=== PATIENT | male | born 1940 | race African-American/Black ===

== ENCOUNTER 2020-01-28 11:26 | Inpatient (IN) ==
[2020-01-28] MEDS ORDERED: ONDANSETRON 4 MG/2 ML VIAL IV PRN (14:03)
[2020-01-28] MEDS ORDERED: ACETAMINOPHEN 325 MG TABLET PO PRN (14:03)
[2020-01-28] MEDS ORDERED: DEXTROSE 10% 1,000 ML IV SCH (14:30)
[2020-01-28] MEDS ORDERED: ENOXAPARIN 40 MG/0.4 ML SYRINGE SUBCUT SCH (15:00)
[2020-01-28 15:38] LABS: ABG Base Excess -6.9 MMOL/L (-2.5-2.5); ABG HCO3 18.9 MMOL/L (20-26); ABG Oxygen Saturation 99.8 % (95-100); ABG PCO2 23.8 MM HG (35-48); ABG TCO2 13.8 MMOL/L (23-27)
[2020-01-28] MEDS: FAMOTIDINE 20 MG/2 ML VIAL IV SCH (15:44)
[2020-01-28 17:07] LABS: Basophils % 0.1 % (0.0-0.8); Hematocrit 39.2 VOL% (42.0-52.0); Hemoglobin 12.6 GM/DL (14.0-18.0); Immature Granulocytes % 0.4 %; Immature Granulocytes Absolute 0.03 #; Lymphocytes # 0.7 10*3/uL (1.4-4.0); Lymphocytes % 9.3 % (21.2-54.2); Mean Corpuscular HGB Conc 32.1 GM/DL (32-36); Mean Corpuscular Volume 79.4 FL (87-102); Mean Platelet Volume 11.5 FL (9.6-12.0); Monocytes % 11.2 % (1.7-12.7); NRBC # 0.05 10*3/uL; Platelet Count 238 T/CUMM (130-400); Red Blood Count 4.94 MC/CUMM (3.8-5.5); Red Cell Distribution Width 20.1 % (9.3-17.3); White Blood Count 7.4 T/CUMM (4-12)
[2020-01-28 17:24] LABS: INR 1.7; PT Patient Result 18.1 SECS (9.8-11.9)
[2020-01-28 17:25] LABS: Bilirubin,Total 1.6 MG/DL (0.2-1.0); Osmolality,Calculated 301.1 MOS/KG (273-304); Total Protein 7.1 G/DL (6.4-8.3)
[2020-01-28] MEDS ORDERED: HYDROCORTISONE 100 MG VIAL IV ONE (21:21)
[2020-01-28] MEDS ORDERED: SODIUM CHLORIDE 0.9% 1,000 ML IV ONE (22:20)
[2020-01-28] MEDS ORDERED: DOPamine 800 MG/250 ML PREMIX IV PRN (22:24)
[2020-01-28 23:12] LABS: Albumin 2.7 G/DL (3.4-5.0); Bilirubin,Total 1.1 MG/DL (0.2-1.0); Calcium 9.9 MG/DL (8.5-10.1); Osmolality,Calculated 299.2 MOS/KG (273-304); Total Protein 6.7 G/DL (6.4-8.3)
[2020-01-29 00:48] LABS: Apearance,Urine CLOUDY (Clear); Bacteria,Urine Many /HPF (Few); Bilirubin,Urine Negative (Negative); Blood, Urine Large mg/dL (Negative); Glucose,Urine (UA) Negative (Negative); Ketones,Urine Negative (Negative); Mucus,Urine Few /LPF (Occasional); Nitrite,Urine Negative (Negative); Protein,Urine 30 MG/DL; RBC,Urine 711 /HPF (0-4); Urine Color Amber (Yellow); Urine Urobilinogen < 2.0 EU/DL (0.2-1.0); WBC,Urine 657 /HPF (0-6)
[2020-01-29] MEDS: FAMOTIDINE 20 MG/2 ML VIAL IV SCH ×2 (03:08→16:30)
[2020-01-29 04:31] LABS: Basophils % 0.1 % (0.0-0.8); Hematocrit 37.2 VOL% (42.0-52.0); Immature Granulocytes % 0.4 %; Immature Granulocytes Absolute 0.04 #; Lymphocytes # 0.5 10*3/uL (1.4-4.0); Lymphocytes % 5.1 % (21.2-54.2); Mean Corpuscular HGB Conc 32.3 GM/DL (32-36); Mean Corpuscular Volume 79.1 FL (87-102); NRBC # 0.06 10*3/uL; Neutrophils % 88.4 % (38.7-73.9); Platelet Count 242 T/CUMM (130-400); Red Cell Distribution Width 20.1 % (9.3-17.3); White Blood Count 10.2 T/CUMM (4-12)
[2020-01-29 04:40] LABS: Allen Test Positive; Pt O2 Delivery Device Ventilator
[2020-01-29 04:41] LABS: ABG Base Excess -3.8 MMOL/L (-2.5-2.5); ABG HCO3 17.4 MMOL/L (20-26); ABG Oxygen Saturation 99.5 % (95-100); ABG PCO2 22.5 MM HG (35-48); ABG PH 7.506 (7.35-7.45); ABG PO2 300.7 MM HG (80-95); ABG TCO2 18.1 MMOL/L (23-27)
[2020-01-29 05:10] LABS: Albumin 2.5 G/DL (3.4-5.0); Albumin 2.8 G/DL (3.4-5.0); Bilirubin,Direct 0.47 MG/DL (0.0-0.20); Bilirubin,Indirect 0.4 MG/DL (0.0-1.0); Bilirubin,Total 0.9 MG/DL (0.2-1.0); Calcium 9.7 MG/DL (8.5-10.1); Total Protein 6.6 G/DL (6.4-8.3); Total Protein 6.7 G/DL (6.4-8.3)
[2020-01-29] MEDS: HYDROCORTISONE 100 MG VIAL IV SCH ×3 (06:41→22:05)
[2020-01-29] MEDS: DEXTROSE 5% NACL 0.45% 1,000 ML IV SCH (10:50)
[2020-01-29] MEDS: cefTRIAXone 1,000 MG in SYRINGE 1 EACH IV SCH (13:15)
[2020-01-29] MEDS: ENOXAPARIN 30 MG/0.3 ML SYRINGE SUBCUT SCH (16:30)
[2020-01-30 04:20] LABS: Hematocrit 37.4 VOL% (42.0-52.0); Hemoglobin 11.7 GM/DL (14.0-18.0); Immature Granulocytes % 0.7 %; Immature Granulocytes Absolute 0.07 #; Lymphocytes # 0.5 10*3/uL (1.4-4.0); Lymphocytes % 5.3 % (21.2-54.2); Mean Corpuscular HGB Conc 31.3 GM/DL (32-36); Mean Corpuscular Volume 79.7 FL (87-102); Mean Platelet Volume 11.3 FL (9.6-12.0); Monocytes % 6.8 % (1.7-12.7); NRBC # 0.03 10*3/uL; Neutrophils % 87.2 % (38.7-73.9); Platelet Count 235 T/CUMM (130-400); Red Blood Count 4.69 MC/CUMM (3.8-5.5); Red Cell Distribution Width 20.4 % (9.3-17.3)
[2020-01-30 04:25] LABS: ABG Base Excess -3.5 MMOL/L (-2.5-2.5); ABG HCO3 21.6 MMOL/L (20-26); ABG Oxygen Saturation 99.8 % (95-100); ABG PH 7.456 (7.35-7.45); ABG TCO2 16.6 MMOL/L (23-27); Allen Test Positive; Pt O2 Delivery Device Ventilator
[2020-01-30 04:32] LABS: Calcium 9.5 MG/DL (8.5-10.1); Osmolality,Calculated 301.8 MOS/KG (273-304)
[2020-01-30] MEDS: DEXTROSE 5% NACL 0.45% 1,000 ML IV SCH (08:06)
[2020-01-30] MEDS: cefTRIAXone 1,000 MG in SYRINGE 1 EACH IV SCH (14:08)
[2020-01-30] MEDS: HYDROCORTISONE 100 MG VIAL IV SCH ×3 (14:08→21:28)
[2020-01-30] MEDS: ENOXAPARIN 30 MG/0.3 ML SYRINGE SUBCUT SCH (15:43)
[2020-01-30] MEDS: FAMOTIDINE 20 MG/2 ML VIAL IV SCH (15:44)
[2020-01-31] MEDS: DEXTROSE 5% NACL 0.45% 1,000 ML IV SCH ×2 (02:32→22:36)
[2020-01-31 07:04] LABS: Calcium 9.3 MG/DL (8.5-10.1); Osmolality,Calculated 305.4 MOS/KG (273-304)
[2020-01-31] MEDS: HYDROCORTISONE 100 MG VIAL IV SCH ×2 (10:14→22:34)
[2020-01-31] MEDS: cefTRIAXone 1,000 MG in SYRINGE 1 EACH IV SCH (10:14)
[2020-01-31] MEDS: FAMOTIDINE 20 MG/2 ML VIAL IV SCH (16:37)
[2020-01-31] MEDS: ENOXAPARIN 30 MG/0.3 ML SYRINGE SUBCUT SCH (16:37)
[2020-02-01 05:07] LABS: Hematocrit 35.8 VOL% (42.0-52.0); Hemoglobin 11.4 GM/DL (14.0-18.0); Immature Granulocytes % 0.5 %; Immature Granulocytes Absolute 0.06 #; Lymphocytes # 0.6 10*3/uL (1.4-4.0); Lymphocytes % 5.6 % (21.2-54.2); Mean Corpuscular HGB Conc 31.8 GM/DL (32-36); Mean Corpuscular Volume 79.4 FL (87-102); Mean Platelet Volume 11.2 FL (9.6-12.0); Monocytes % 6.5 % (1.7-12.7); NRBC # 0.03 10*3/uL; Neutrophils % 87.4 % (38.7-73.9); Platelet Count 182 T/CUMM (130-400); Red Blood Count 4.51 MC/CUMM (3.8-5.5); Red Cell Distribution Width 20.9 % (9.3-17.3); White Blood Count 11.3 T/CUMM (4-12)
[2020-02-01 05:58] LABS: Calcium 9.5 MG/DL (8.5-10.1); Osmolality,Calculated 301.7 MOS/KG (273-304)
[2020-02-01] MEDS: HYDROCORTISONE 100 MG VIAL IV SCH ×2 (10:18→22:19)
[2020-02-01] MEDS: cefTRIAXone 1,000 MG in SYRINGE 1 EACH IV SCH (10:20)
[2020-02-01] MEDS: FAMOTIDINE 20 MG/2 ML VIAL IV SCH (15:25)
[2020-02-01] MEDS: ENOXAPARIN 30 MG/0.3 ML SYRINGE SUBCUT SCH (15:25)
[2020-02-01] MEDS ORDERED: DEXTROSE 50% 25 GM/50 ML VIAL IV PRN (15:45)
[2020-02-01] MEDS ORDERED: GLUCAGON 1 MG VIAL IM PRN (15:45)
[2020-02-01] MEDS: INSULIN LISPRO 100 UNIT/ML SUBCUT SCH ×2 (16:12→21:00)
[2020-02-01] MEDS: DEXTROSE 5% NACL 0.45% 1,000 ML IV SCH (19:30)
[2020-02-02] MEDS: INSULIN LISPRO 100 UNIT/ML SUBCUT SCH ×4 (01:58→20:14)
[2020-02-02] MEDS: ALBUTEROL/IPRATROPIUM 3 ML NEB RESP TX SCH ×5 (02:35→19:26)
[2020-02-02 02:47] LABS: Basophils % 0.1 % (0.0-0.8); Eosinophils % 0.3 % (0.00-10.9); Hematocrit 37.6 VOL% (42.0-52.0); Hemoglobin 11.9 GM/DL (14.0-18.0); Immature Granulocytes % 0.6 %; Immature Granulocytes Absolute 0.06 #; Lymphocytes # 0.7 10*3/uL (1.4-4.0); Lymphocytes % 6.1 % (21.2-54.2); Mean Corpuscular HGB Conc 31.6 GM/DL (32-36); Mean Platelet Volume 10.6 FL (9.6-12.0); NRBC # 0.02 10*3/uL; Neutrophils % 87.9 % (38.7-73.9); Platelet Count 175 T/CUMM (130-400); Red Blood Count 4.64 MC/CUMM (3.8-5.5); Red Cell Distribution Width 20.6 % (9.3-17.3); White Blood Count 10.8 T/CUMM (4-12)
[2020-02-02 03:02] LABS: Calcium 9.5 MG/DL (8.5-10.1); Osmolality,Calculated 300.5 MOS/KG (273-304)
[2020-02-02 03:07] LABS: Troponin I 0.379 NG/ML (0.00-0.045)
[2020-02-02] MEDS: TERAZOSIN 2 MG CAPSULE PO SCH (09:22)
[2020-02-02] MEDS: ASPIRIN EC 81 MG TABLET PO SCH ×2 (09:22→09:29)
[2020-02-02] MEDS: METOPROLOL SUCCINATE XL 100 MG TABLET PO SCH (09:22)
[2020-02-02] MEDS: HYDROCORTISONE 100 MG VIAL IV SCH ×2 (09:23→21:56)
[2020-02-02] MEDS: cefTRIAXone 1,000 MG in SYRINGE 1 EACH IV SCH (12:00)
[2020-02-02] MEDS: ENOXAPARIN 30 MG/0.3 ML SYRINGE SUBCUT SCH (15:58)
[2020-02-02] MEDS: FAMOTIDINE 20 MG/2 ML VIAL IV SCH (15:59)
[2020-02-02] MEDS: DEXTROSE 5% NACL 0.45% 1,000 ML IV SCH (16:59)
[2020-02-03] MEDS: ALBUTEROL/IPRATROPIUM 3 ML NEB RESP TX SCH ×7 (00:07→20:11)
[2020-02-03] MEDS: INSULIN LISPRO 100 UNIT/ML SUBCUT SCH ×4 (01:50→17:19)
[2020-02-03 05:46] LABS: Eosinophils % 0.1 % (0.00-10.9); Hematocrit 37.6 VOL% (42.0-52.0); Hemoglobin 11.8 GM/DL (14.0-18.0); Immature Granulocytes % 0.6 %; Immature Granulocytes Absolute 0.06 #; Lymphocytes # 0.4 10*3/uL (1.4-4.0); Lymphocytes % 3.9 % (21.2-54.2); Mean Corpuscular HGB Conc 31.4 GM/DL (32-36); Mean Corpuscular Volume 80.7 FL (87-102); Monocytes % 2.5 % (1.7-12.7); Neutrophils % 92.9 % (38.7-73.9); Platelet Count 159 T/CUMM (130-400); Red Blood Count 4.66 MC/CUMM (3.8-5.5); Red Cell Distribution Width 21.1 % (9.3-17.3); White Blood Count 10.5 T/CUMM (4-12)
[2020-02-03 06:11] LABS: Albumin 2.9 G/DL (3.4-5.0); Bilirubin,Total 0.8 MG/DL (0.2-1.0); Calcium 9.6 MG/DL (8.5-10.1); Osmolality,Calculated 300.4 MOS/KG (273-304)
[2020-02-03 06:20] LABS: Band Neutrophils 1 % (0-10); Hypochromasia 2+; Lymphocytes 4 % (20-55); Segmented Neutrophils 93 % (50-85); Total Cells Counted 100
[2020-02-03 06:21] LABS: Microcytosis 1+; Target Cells Slight
[2020-02-03 06:22] LABS: Platelet Estimate Adequate
[2020-02-03] MEDS: TERAZOSIN 2 MG CAPSULE PO SCH (09:38)
[2020-02-03] MEDS: HYDROCORTISONE 100 MG VIAL IV SCH ×2 (09:38→22:23)
[2020-02-03] MEDS: ASPIRIN EC 81 MG TABLET PO SCH (09:38)
[2020-02-03] MEDS: METOPROLOL SUCCINATE XL 100 MG TABLET PO SCH (09:38)
[2020-02-03] MEDS: DEXTROSE 5% NACL 0.45% 1,000 ML IV SCH (12:30)
[2020-02-03] MEDS: cefTRIAXone 1,000 MG in SYRINGE 1 EACH IV SCH (13:00)
[2020-02-03] MEDS: ENOXAPARIN 30 MG/0.3 ML SYRINGE SUBCUT SCH (15:18)
[2020-02-03] MEDS: FAMOTIDINE 20 MG/2 ML VIAL IV SCH (15:20)
[2020-02-04] MEDS: INSULIN LISPRO 100 UNIT/ML SUBCUT SCH ×4 (01:24→17:38)
[2020-02-04] MEDS: ALBUTEROL/IPRATROPIUM 3 ML NEB RESP TX SCH ×6 (04:49→23:45)
[2020-02-04 07:26] LABS: Basophils % 0.1 % (0.0-0.8); Eosinophils # 0.1 10*3/uL (0.0-0.87); Eosinophils % 0.7 % (0.00-10.9); Hematocrit 35.4 VOL% (42.0-52.0); Hemoglobin 11.3 GM/DL (14.0-18.0); Immature Granulocytes % 0.7 %; Immature Granulocytes Absolute 0.08 #; Lymphocytes # 0.6 10*3/uL (1.4-4.0); Lymphocytes % 5.2 % (21.2-54.2); Mean Corpuscular HGB Conc 31.9 GM/DL (32-36); Mean Corpuscular Volume 81.2 FL (87-102); Mean Platelet Volume 10.8 FL (9.6-12.0); Monocytes % 5.2 % (1.7-12.7); NRBC # 0.02 10*3/uL; Neutrophils % 88.1 % (38.7-73.9); Platelet Count 150 T/CUMM (130-400); Red Blood Count 4.36 MC/CUMM (3.8-5.5); Red Cell Distribution Width 20.7 % (9.3-17.3); White Blood Count 10.9 T/CUMM (4-12)
[2020-02-04 08:37] LABS: Osmolality,Calculated 295.4 MOS/KG (273-304)
[2020-02-04] MEDS: DEXTROSE 5% NACL 0.45% 1,000 ML IV SCH (09:04)
[2020-02-04] MEDS: TERAZOSIN 2 MG CAPSULE PO SCH (09:13)
[2020-02-04] MEDS: HYDROCORTISONE 100 MG VIAL IV SCH (09:13)
[2020-02-04] MEDS: ASPIRIN EC 81 MG TABLET PO SCH (09:13)
[2020-02-04] MEDS: METOPROLOL SUCCINATE XL 100 MG TABLET PO SCH (09:13)
[2020-02-04] MEDS: cefTRIAXone 1,000 MG in SYRINGE 1 EACH IV SCH (11:04)
[2020-02-04] MEDS: FUROSEMIDE 20 MG TABLET PO SCH ×2 (11:04→15:42)
[2020-02-04] MEDS: FAMOTIDINE 20 MG/2 ML VIAL IV SCH (15:43)
[2020-02-04] MEDS: ENOXAPARIN 30 MG/0.3 ML SYRINGE SUBCUT SCH (15:45)
[2020-02-05] MEDS: INSULIN LISPRO 100 UNIT/ML SUBCUT SCH ×2 (02:19→06:31)
[2020-02-05] MEDS: ALBUTEROL/IPRATROPIUM 3 ML NEB RESP TX SCH ×3 (05:20→11:02)
[2020-02-05 05:56] LABS: Basophils % 0.1 % (0.0-0.8); Eosinophils # 0.4 10*3/uL (0.0-0.87); Eosinophils % 3.7 % (0.00-10.9); Hematocrit 35.7 VOL% (42.0-52.0); Hemoglobin 11.3 GM/DL (14.0-18.0); Immature Granulocytes % 0.6 %; Immature Granulocytes Absolute 0.06 #; Lymphocytes # 1.4 10*3/uL (1.4-4.0); Lymphocytes % 13.6 % (21.2-54.2); Mean Corpuscular HGB Conc 31.7 GM/DL (32-36); Mean Platelet Volume 10.5 FL (9.6-12.0); Monocytes % 6.8 % (1.7-12.7); NRBC # 0.02 10*3/uL; Neutrophils % 75.2 % (38.7-73.9); Platelet Count 146 T/CUMM (130-400); Red Blood Count 4.41 MC/CUMM (3.8-5.5); Red Cell Distribution Width 21.1 % (9.3-17.3); White Blood Count 9.9 T/CUMM (4-12)
[2020-02-05 06:21] LABS: Calcium 9.8 MG/DL (8.5-10.1); Osmolality,Calculated 296.3 MOS/KG (273-304)
[2020-02-05 08:46] VITALS: BP 110/72
[2020-02-05] MEDS ORDERED: FERROUS SULFATE 325 MG TABLET PO SCH (09:00)
[2020-02-05] MEDS ORDERED: lisinopriL 2.5 MG TABLET PO SCH (09:00)
[2020-02-05] MEDS: METOPROLOL SUCCINATE XL 100 MG TABLET PO SCH (09:48)
[2020-02-05] MEDS: ASPIRIN EC 81 MG TABLET PO SCH ×2 (09:48→09:53)
[2020-02-05] MEDS: TERAZOSIN 2 MG CAPSULE PO SCH (09:48)
[2020-02-05] MEDS: FUROSEMIDE 20 MG TABLET PO SCH (09:48)
== END 2020-02-05 12:11 | disposition home health service (06) | DRG 637 ==
LOC: SUATTDRO 13:08 → N.ICU 13:08 → N.CLINP 01-29 05:00 → N.TELEN 01-30 18:17
PROVIDERS: ADMIT Internal Medicine; ATTEND Internal Medicine